=== PATIENT | male | born 1990 | race Caucasian/White ===

== ENCOUNTER 2020-12-07 12:05 | Emergency (ER) | payer OTHER ==
[~2020-12-07] VITALS: Ht 182.9 cm; Wt 81.8 kg
[2020-12-07] MEDS ORDERED: CYCL-1 PO (12:30)
[2020-12-07] MEDS ORDERED: IBUP-1984 PO (12:30)
[2020-12-07 12:32] VITALS: BP 142/93
== END 2020-12-07 12:55 | disposition home or self-care (01) ==
LOC: ER 12:08
DX: S39.012A Strain of muscle, fascia and tendon of lower back, initial encounter (principal); G89.29 Other chronic pain; Z88.1 Allergy status to other antibiotic agents; Z79.899 Other long term (current) drug therapy; X58.XXXA Exposure to other specified factors, initial encounter; Y93.89 Activity, other specified; Y92.89 Other specified places as the place of occurrence of the external cause; Y99.8 Other external cause status
CPT/HCPCS: 99283